=== PATIENT | male | born 1965 | race Caucasian/White ===

== ENCOUNTER 2023-11-21 12:19 | Emergency (ER) | payer OTHER ==
[2023-11-21 12:22] VITALS: BP 127/76; PULSE 75; RESP 18; TEMP 97; BMI 28.1
[2023-11-21] MEDS ORDERED: KETOROLAC TROMETHAMINE 30 MG/1 ML VIAL ONE (13:09)
[2023-11-21] MEDS ORDERED: LIDOCAINE 4% PATCH TP ONE (13:09)
[2023-11-21] MEDS ORDERED: ACETAMINOPHEN 500 MG TABLET (FP) ONE (13:09)
[2023-11-21] MEDS: KETOROLAC TROMETHAMINE 30 MG/1 ML VIAL IM ONE (13:14)
[2023-11-21] MEDS: LIDOCAINE 4% PATCH TP ONE (13:14)
[2023-11-21] MEDS: ACETAMINOPHEN 500 MG TABLET (FP) PO ONE (13:14)
[2023-11-21] MEDS ORDERED: LIDOCAINE PATCH REMOVAL MC ONE (22:00)
== END 2023-11-21 14:36 | disposition home or self-care (01) ==
LOC: JER 12:19 → JERFT 12:19
PROC: 3E0133Z Introduction of Anti-inflammatory into Subcutaneous Tissue, Percutaneous Approach (ICD-10-PCS; principal; 2023-11-21)
DX: M25.562 Pain in left knee (principal); M25.522 Pain in left elbow; M54.2 Cervicalgia; V49.50XA Passenger injured in collision with unspecified motor vehicles in traffic accident, initial encounter
CPT/HCPCS: 73070-TC-LT-FY; 99284-25